=== PATIENT | male | born 1965 | race Caucasian/White ===

== ENCOUNTER 2017-02-12 00:37 | Emergency (ER) | payer SELFPAY ==
[~2017-02-12] VITALS: Ht 170.2 cm; Wt 86.0 kg
[2017-02-12 00:39] VITALS: BP 153/80
== END 2017-02-12 03:29 | disposition left against medical advice (07) ==
LOC: EDBD 00:39 → EMS 00:39
DX: R51 Headache (principal); Z53.21 Procedure and treatment not carried out due to patient leaving prior to being seen by health care provider